=== PATIENT | male | born 1970 | race Caucasian/White ===

== ENCOUNTER → 2024-11-18 08:02 | Outpatient (REF) | payer SELFPAY | LOC: HWRAD 08:02 | PROVIDERS: ATTENDING PHYSICIAN Family Medicine | DX: Z13.6 Encounter for screening for cardiovascular disorders (principal) | CPT/HCPCS: 75571 ==

== ENCOUNTER 2025-03-16 07:35 | Emergency (ER) | payer SELFPAY ==
[2025-03-16 07:36] VITALS: BP 177/105
[2025-03-16 08:01] VITALS: BMI 22.0
--- NOTE | 2025-03-16 08:30 | ED.GENMED ---
History of Present Illness
General
Chief Complaint: Abnormal Lab Value
Time Seen by Provider: 03/16/25 08:16
History of Present Illness
History of Present Illness:
54-year-old male with history of iron deficiency anemia and Crohn's disease (managed with Humira) presents to the emergency department for evaluation of suspected low hemoglobin. He states he had a syncopal event over the weekend and is concerned
this may be related to his worsening anemia. He also notes loss of taste. Denies chest pain or shortness of breath but does occasionally have palpitations upon waking up in the morning. No reported fevers or chills. No black or bloody stools
until the past 3 days, notes dark stool due to taking oral iron.
Past History
Past History
ED Past Medical History: Other (Anemia) and Other (Crohn's disease)
ED Past Surgical History: Negative Bowel resection
Social History
Tobacco: Non-smoker
Alcohol: None
Drug: None
Personal:
Living: alone
Employment: Employed
Family History
Family History: CAD
Review of Systems
Review of Systems
Allergies reviewed?: Yes
All Other Systems: ROS reviewed and negative except as documented in HPI and ROS
Phy Exam
Physical Exam
Physical Exam:
GEN: Well appearing, NAD, WDWN
HEENT: Oral mucosa moist, no scleral icterus
Cardiac: Regular rate and rhythm, no murmurs
Lung: No respiratory distress, no tachypnea, lungs clear to auscultation
MSK: No gross deformity or injuries
Skin: Good color, no pallor or jaundice, no rashes
Neuro: AO x3, moves all extremities freely
Psych: Calm, cooperative
Course
Orders/Labs/Results
Orders:
Orders
03/16/25 08:21
Type+Screen Urgent
Complete Blood Count/With Diff Urgent
Comprehensive Metabolic Panel Urgent
Iron Urgent
TIBC [Total Iron Binding] Urgent
03/16/25 08:33
B12 [Vitamin B12] Urgent
Ferritin Urgent
Folate Urgent
03/16/25 08:34
Electrocardiogram (*1) Urgent
Reason for Study: Syncope
EKG- Treatment ONCE
03/16/25 09:12
Ferric Gluconate [Ferrlecit] 125 mg 0.9% Sodium Chloride 100 ml [Nss] 100 ml IV NOW
Abnormal Lab Results
03/16/25 03/16/25
08:21 08:33
Hgb 9.9 L g/dL
(13.0-18.0)
Hct 34.6 L %
(39.0-52.0)
MCV 65.9 L fL
(80.0-94.0)
MCH 18.9 L pg
(27.0-31.0)
MCHC 28.6 L g/dL
(33.0-37.0)
RDW 17.2 H %
(11.5-14.5)
Absolute Monos (auto) 0.8 H 10^3/uL
(0.1-0.6)
Lymphocytes % 18.3 L %
(20.5-51.1)
Monocytes % 11.6 H %
(1.7-9.3)
Glucose 107 H mg/dl
(70-99)
Iron 24 L ug/dl
(49-181)
TIBC 520 H ug/dl
(261-462)
% Saturation 4 L %
(20-50)
Ferritin 5.9 L ng/ml
(17.9-464.0)
03/16/25 08:21
03/16/25 08:21
Vital Signs
Initial and Last Documented VS:
Initial Vital Signs
Temp Pulse Resp BP Pulse Ox
98.4 F 98 18 177/105 100
03/16/25 07:36 03/16/25 07:36 03/16/25 07:36 03/16/25 07:36 03/16/25 07:36
Last Documented Vital Signs
Temp Pulse Resp BP Pulse Ox
98.4 F 75 19 137/77 99
03/16/25 07:36 03/16/25 11:30 03/16/25 11:30 03/16/25 11:35 03/16/25 11:30
MDM/Problems Addressed
MDM/Problems Addressed:
54-year-old male with history of iron deficiency anemia presenting after a syncopal event found to be moderately iron deficient, hemoglobin adequate thus does not require blood transfusion. Initiated iron infusion in emergency department,
coordinated with his primary care physician for close follow-up to confirm outpatient iron infusions can be continued. Clinically stable, suitable for ongoing outpatient management
Comment
Comment:
EKG independently interpreted by me shows normal sinus rhythm at a rate of [address] changes concerning for ischemia, QTc of 419
*Pulse Oximetry
SaO2: 100
Patient hypoxic: no
*Critical Care Note
Total Time (30-74mins, 75-104mins- exclusive of procedures): Not Applicable
ED Attending Note
-
Portions of this chart may have been created with voice recognition software.� Occasional wrong word or��sound alike� substitutions may have occurred due to the inherent limitations of voice recognition software.
Discharge Plan
Departure
Patient Disposition: Home (Routine Discharge)
Date of Disposition: 03/16/25
Time of Disposition: 10:52
Patient with high blood pressure during this ER visit?: No
Discharge Problem:
Iron deficiency anemia
Instructions: Low iron in adults (DC)
Prescriptions:
No Action
Humira(CF) 40 MG/0.4 ML syringe kit
40 mg SC WEEKLY
Patient Comments:
TAKES ON FRIDAY
multivitamin with folic acid [Tab-A-Deepthi] 1 TABLET tablet
1 tab PO DAILY
Patient Comments:
12/13/2019: Pt only takes when he remembers
cyanocobalamin (vitamin B-12) 1,000 MCG tablet
1,000 mcg PO DAILY Qty: 30 0RF
Referrals:
Pedro Nicolas, DO [Family Provider, [facility]]
Activity Restrictions/Additional Instructions:
Follow up with Dr Nicolas's office this week to coordinate further iron infusions
Continue with oral iron supplementation for the time being
Your folate and B12 levels were normal
Interventions
Interventions:
*Risk Screen - Suicide Last Done: 03/16/25 07:36
*General Assessment Last Done: 03/16/25 07:36
*Neglect/Abuse Screening Last Done: 03/16/25 08:00
*ED- Fall Risk Assessment Last Done: 03/16/25 08:00
*Nursing Disposition Last Done: 03/16/25 11:40
Discharge Date and Time
Discharge Date/Time: 03/16/25 11:40
Print Language: YORUBA
[2025-03-16 08:45] VITALS: BP 148/89
[2025-03-16 08:46] LABS: Hematocrit 34.6 % (39.0-52.0); Hemoglobin 9.9 g/dL (13.0-18.0); Mean Corp Hgb Conc. 28.6 g/dL (33.0-37.0); Mean Corpuscular Volume 65.9 fL (80.0-94.0); Nucleated Red Blood Cells % 0 % (-); Platelet Count 342 10^3/uL (130-400); Red Cell Dist. Width 17.2 % (11.5-14.5)
[2025-03-16 09:02] LABS: ALT (SGPT) 17 U/L (0-50); AST (SGOT) 22 U/L (17-59); Albumin 4.2 g/dl (3.5-5.0); Alkaline Phosphatase 66 U/L (38-126); Blood Urea Nitrogen 13 mg/dl (9-20); Calcium 9.2 mg/dl (8.4-10.2); Carbon Dioxide 26 mmol/L (22-30); Chloride 105 mmol/L (98-107); Estimated Creatinine Clearance 64 ml/min; Glucose 107 mg/dl (70-99); Iron 24 ug/dl (49-181); Potassium 4.7 mmol/L (3.5-5.1); Sodium 138 mmol/L (135-145); Total Protein 7.3 g/dl (6.3-8.2); eGFR > 60.00
[2025-03-16 09:11] LABS: Total Iron Binding Capacity 520 ug/dl (261-462)
[2025-03-16 09:31] LABS: Ferritin 5.9 ng/ml (17.9-464.0)
[2025-03-16 10:00] VITALS: BP 115/86
[2025-03-16 10:02] LABS: Folate 12.9 ng/ml (2.76-20); Vitamin B12 396 pg/ml (239-931)
[2025-03-16] MEDS: FERRLECIT 110 MG IV (10:31)
[2025-03-16 11:35] VITALS: BP 137/77
== END 2025-03-16 11:40 | disposition home or self-care (01) ==
LOC: EMR 07:35
PROVIDERS: Physician Assistant; EMERGENCY PHYSICIAN Emergency Medicine; FAMILY PHYSICIAN Family Medicine
DX: D50.9 Iron deficiency anemia, unspecified (principal); R55 Syncope and collapse; K50.90 Crohn's disease, unspecified, without complications; Z79.899 Other long term (current) drug therapy
CPT/HCPCS: 96374; 99284; 80053; 82607; 82728; 82746; 83540; 83550; 85025; 86850; 86900; 86901; 93005; J2916